=== PATIENT | male | born 2000 | race Caucasian/White ===

== ENCOUNTER 2018-03-28 18:14 | Emergency (ER) | payer OTHER ==
[2018-03-28] MEDS ORDERED: HALOPERIDOL LACT 5 MG/ML INJ IM ONE (18:20)
--- NOTE | 2018-03-28 18:31 | EDPHY ---
H & P Time Seen by Provider: 03/28/18 18:29 HPI/ROS: CHIEF COMPLAINT: Agitated delirium HISTORY OF PRESENT ILLNESS: The patient presents to the ED with agitated delirium after using mushrooms earlier today. The patient is quite confused, agitated and combative. He is unable to provide much history. By report the patient has no significant past medical history. There is no history of significant self-harm or injury prior to arrival. The patient arrives having been restrained by EMS. He did receive 5 mg of Haldol prior to arrival. The patient is unable to provide any additional history secondary to his excited delirium REVIEW OF SYSTEMS: A comprehensive 10 point review is unobtainable secondary to his agitation Source: Patient, EMS - Personal History Current Tetanus/Diphtheria Vaccine: Unsure - Medical/Surgical History PMH: Past medical history: Reportedly negative - Social History Drug Use: Other - Physical Exam Exam: General Appearance: Agitated, hyper stimulated, confused and hallucinating Eyes: Pupils equal and round no pallor or injection ENT, Mouth: Mucous membranes moist Respiratory: There are no retractions, lungs are clear to auscultation Cardiovascular: Regular rate and rhythm Gastrointestinal: Abdomen is soft and nontender, no masses, bowel sounds normal Neurological: A&O, normal motor function, normal sensory exam, normal cranial nerves Skin: Superficial skin laceration on hand Musculoskeletal: Neck is supple nontender Extremities: symmetrical, full range of motion Psychiatric: Agitated, appears to be under the influence of drugs Constitutional: Initial Vital Signs Temperature (C) 37 C 03/28/18 18:26 Heart Rate 99 03/28/18 18:26 Respiratory Rate 14 03/28/18 18:26 Blood Pressure 135/68 H 03/28/18 18:26 O2 Sat (%) 95 03/28/18 18:26 O2 Delivery Mode Room Air Allergies/Adverse Reactions: Unable to Assess Allergy (Unverified 03/28/18 18:26) Home Medications: Medication Instructions Recorded Unobtainable 03/28/18 Medical Decision Making ED Course/Re-evaluation: The patient was placed in physical restraints. He was given additional 5 mg of Haldol. Re-evaluated the patient at 6:40 p.m.. He is calming down. He is no longer agitated. He continues to be paranoid and delusional. Goal will be to try and remove physical restraints when safety allows so. Re-evaluated the patient at 8:00 p.m.. He is common cooperative. His restraints have been removed without any complication. The patient clearly states that he had taken motions this evening. He remembers being disoriented and scared. The patient did hit his head on the bed in the emergency department when he was initially being restrained. He does have a very small hematoma to his forehead. He denies any significant headache. 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 He denies any suicidal or homicidal ideation. He has no complaints of acute headache, neck pain, numbness, weakness, abdominal pain or difficulty breathing. The patient has requested that we contact his friend Kye to pick him up from the emergency department. At this point time the patient's altered mental status has resolved and he is appropriate for discharge. Differential Diagnosis: Differential diagnosis considered includes psychosis, agitated delirium, substance abuse - Data Points Medications Given: Discontinued Medications Haloperidol Lactate (Haldol Injection) 5 mg IM EDNOW ONE Stop: 03/28/18 18:21 Last Admin: 03/28/18 18:20 Dose: 5 mg Departure - Departure Disposition: Home, Routine, Self-Care Clinical Impression: Psilocybin poisoning Condition: Good Instructions: Polysubstance Abuse (ED) Additional Instructions: 1. I strongly recommend not taking hallucinogenic drugs or any prescription medications which is not been prescribed you. 2. Tylenol and ibuprofen as needed for your forehead contusion. Please return to the ED immediately for severe headache or other concerns.
[2018-03-28 20:59] VITALS: BP 124/86
== END 2018-03-28 20:57 | disposition home or self-care (01) ==
DX: T40.991A Poisoning by other psychodysleptics [hallucinogens], accidental (unintentional), initial encounter (principal)